=== PATIENT | female | born 1950 | race Caucasian/White ===

== ENCOUNTER 2019-01-21 16:52 | Emergency (ER) | payer OTHER ==
[~2019-01-21] VITALS: Ht 149.9 cm; Wt 101.2 kg
[~2019-01-21 16:52] MED LIST: ASPI81CH; CRANBERRY500 MG; Clotrimazole15 GM; HYDCHL25; LISI20; NITR100CA PO; PHENA200 PO
== END 2019-01-21 18:17 | disposition home or self-care (01) ==
LOC: ER 16:52
DX: L23.7 Allergic contact dermatitis due to plants, except food (principal); Z88.2 Allergy status to sulfonamides; Z88.1 Allergy status to other antibiotic agents; Z88.8 Allergy status to other drugs, medicaments and biological substances; Z79.899 Other long term (current) drug therapy; Z79.82 Long term (current) use of aspirin; E11.9 Type 2 diabetes mellitus without complications; I10 Essential (primary) hypertension
CPT/HCPCS: 99282

== ENCOUNTER → 2020-11-11 | Outpatient (CLI) | payer OTHER | END | disposition home or self-care (01) | LOC: LAB SHORT 15:25 → LAB 15:25 | DX: N39.0 Urinary tract infection, site not specified (principal) | CPT/HCPCS: 87077; 87086; 87186 ==

== ENCOUNTER → 2021-01-23 | Outpatient (CLI) | payer OTHER ==
[2021-01-24 10:29] LABS: C DIFFICILE DNA POSITIVE (Negative)
== END | disposition home or self-care (01) ==
LOC: LAB 14:58 → LAB SHORT 14:58 → LAB FUT 01-23 10:40
PROVIDERS: Family Medicine
DX: R19.7 Diarrhea, unspecified (principal); R10.9 Unspecified abdominal pain
CPT/HCPCS: 87177; 87209; 87324; 87493

== ENCOUNTER → 2021-02-09 | Outpatient (CLI) | payer OTHER ==
[2021-02-10 13:16] LABS: C DIFFICILE DNA Duplicate (Negative)
== END | disposition home or self-care (01) ==
LOC: LAB 09:43 → LAB SHORT 09:43 → LAB FUT 02-05 16:05
PROVIDERS: Family Medicine
DX: A04.71 Enterocolitis due to Clostridium difficile, recurrent (principal)
CPT/HCPCS: 87493

== ENCOUNTER 2021-02-18 08:42 | Emergency (ER) | payer OTHER ==
[~2021-02-18] VITALS: Ht 149.9 cm; Wt 86.2 kg
== END 2021-02-18 09:51 | disposition home or self-care (01) ==
LOC: ER 08:42
DX: J40 Bronchitis, not specified as acute or chronic (principal); R04.2 Hemoptysis; E11.9 Type 2 diabetes mellitus without complications; I10 Essential (primary) hypertension; Z77.22 Contact with and (suspected) exposure to environmental tobacco smoke (acute) (chronic); Z79.899 Other long term (current) drug therapy
CPT/HCPCS: 71045; 99283-25

== ENCOUNTER 2021-02-19 23:56 | Emergency (ER) | payer OTHER ==
[~2021-02-19] VITALS: Ht 149.9 cm; Wt 83.9 kg
== END 2021-02-20 01:04 | disposition home or self-care (01) ==
LOC: ER 23:56
DX: M54.6 Pain in thoracic spine (principal); Z79.82 Long term (current) use of aspirin; Z79.899 Other long term (current) drug therapy
CPT/HCPCS: 99282

== ENCOUNTER → 2022-09-21 | Outpatient (CLI) | payer OTHER ==
[~2022-09-21] MED LIST changes: +ERYT.5TO RIGHTEYE
== END | disposition home or self-care (01) ==
LOC: LAB SHORT 10:55 → LAB 10:55
DX: N39.0 Urinary tract infection, site not specified (principal)
CPT/HCPCS: 87077; 87086; 87186

== ENCOUNTER → 2023-07-20 | Outpatient (CLI) | payer OTHER | END | disposition home or self-care (01) | LOC: LAB SHORT 15:23 → LAB 15:23 | DX: M54.50 Low back pain, unspecified (principal); R30.0 Dysuria | CPT/HCPCS: 87077; 87086; 87186 ==

== ENCOUNTER → 2025-08-11 | Outpatient (CLI) | payer OTHER | LOC: LAB 09:51 → LAB SHORT 09:51 | DX: M54.50 Low back pain, unspecified (principal); R82.90 Unspecified abnormal findings in urine | CPT/HCPCS: 87077; 87086; 87186 ==